=== PATIENT | female | born 1950 | race Caucasian/White ===

== ENCOUNTER 2021-12-18 01:49 | Emergency (ER) | payer MEDICARE ==
[~2021-12-18 01:49] MED LIST: AFRIN NASAL SPR30 ML; AUGMENTIN 875-1 EACH PO; CARAFATE1 GM PO; CIPRODEX OTIC7.5 ML EARLF; FLONASE 0.05% N16 GM; IBUPROFEN600 MG PO; LACTINEX GRANULES PO; MEGACE 400400 MG/10 PO; OMNICEF 300 MG300 MG PO; PROTONIX40 MG PO; REGLAN10 MG PO; ZOFRAN4 MG PO
[2021-12-18 03:24] LABS: HEMOGLOBIN 14.1 gm/dl (12.3-15.3); RED BLOOD COUNT 4.59 M/UL (4.00-5.10); WHITE BLOOD COUNT 7.3 K/UL (4.5-11.0)
[2021-12-18 03:50] LABS: BUN/CREATININE RATIO 9 (0-10)
== END 2021-12-18 04:52 | disposition home or self-care (01) ==
LOC: ER1 01:49
PROVIDERS: Family Medicine
DX: R00.2 Palpitations (principal); R42 Dizziness and giddiness; E78.5 Hyperlipidemia, unspecified; F17.200 Nicotine dependence, unspecified, uncomplicated; Z88.0 Allergy status to penicillin
CPT/HCPCS: 71045; 80053; 82550; 82553; 84439; 84443; 84484; 85025; 93005; 93242; 99284

== ENCOUNTER → 2022-02-10 | Outpatient (CLI) | payer MEDICARE | LOC: MAMO 14:30 | DX: Z12.31 Encounter for screening mammogram for malignant neoplasm of breast (principal) | CPT/HCPCS: 77063; 77067 ==